=== PATIENT | female | born 1985 ===

== ENCOUNTER 2017-11-09 22:22 | Emergency (ER) | payer OTHER ==
[2017-11-09 22:25] VITALS: BP 125/73
== END 2017-11-09 22:30 | disposition admitted as inpatient to this hospital (09) ==
LOC: ERH 22:22
DX: R09.89 Other specified symptoms and signs involving the circulatory and respiratory systems (principal); R51 Headache; H92.03 Otalgia, bilateral; R06.02 Shortness of breath; R05 Cough